=== PATIENT | female | born 1955 | race Hispanic/Latino ===

== ENCOUNTER → 2017-09-10 | Outpatient (CLI) | payer OTHER ==
[~2017-09-10] MED LIST: BACI1CAP PO; BIMA12.5OS OU; CEFD300C3 PO; GUAI120L62 PO; INSLAN SQ; INSU100I3 SQ; LEVA0.6312 IH; LEVO75TA10 PO; LORA-705 PO; MULT1CAP32 PO; OMEG300C3 PO
== END | disposition home or self-care (01) ==
LOC: RAH 15:47
PROVIDERS: ATTEND Internal Medicine
DX: Z12.31 Encounter for screening mammogram for malignant neoplasm of breast (principal)
CPT/HCPCS: 77067

== ENCOUNTER → 2018-03-25 | Outpatient (CLI) | payer OTHER | END | disposition home or self-care (01) | LOC: RAH 13:19 | PROVIDERS: ATTEND Registered Nurse General Practice | DX: N63.10 Unspecified lump in the right breast, unspecified quadrant (principal); N63.20 Unspecified lump in the left breast, unspecified quadrant | CPT/HCPCS: 76641 ==

== ENCOUNTER → 2018-04-09 | Outpatient (CLI) | payer OTHER | END | disposition home or self-care (01) | LOC: RAH 09:35 | PROVIDERS: ATTEND Family Medicine | DX: N63.21 Unspecified lump in the left breast, upper outer quadrant (principal) | CPT/HCPCS: 77066 ==

== ENCOUNTER → 2018-05-23 | Outpatient (CLI) | payer OTHER | END | disposition home or self-care (01) | LOC: RAH 08:36 | PROVIDERS: ATTEND Internal Medicine Gastroenterology | DX: K76.0 Fatty (change of) liver, not elsewhere classified (principal); K85.90 Acute pancreatitis without necrosis or infection, unspecified; G43.909 Migraine, unspecified, not intractable, without status migrainosus | CPT/HCPCS: 76700 ==

== ENCOUNTER → 2019-05-15 | Outpatient (CLI) | payer OTHER ==
[~2019-05-15] MED LIST changes: -LEVA0.6312 IH; +LEVA0.6333 IH
--- NOTE | 2019-05-15 12:53 | NUR ---
MBSS COMPLETED. PENETRATION WITH THIN LIQUIDS NOTED. RECOMMEND REGULAR TEXTURE, NECTAR-THICK LIQUIDS, PILLS WHOLE WITH LIQUIDS. RECOMMENDATIONS: 1. SKILLED SPEECH THERAPY TARGETING SWALLOWING [id number]. Addendum: 05/16/19 at 0854 by AD BUNDY, SPT ST Amended: Links added.
== END | disposition home or self-care (01) ==
LOC: RAH 11:15
PROVIDERS: ATTEND Family Medicine
DX: N60.02 Solitary cyst of left breast (principal); N60.01 Solitary cyst of right breast; R13.13 Dysphagia, pharyngeal phase; G43.909 Migraine, unspecified, not intractable, without status migrainosus; I10 Essential (primary) hypertension; E11.9 Type 2 diabetes mellitus without complications
CPT/HCPCS: 74230; 76641; 77066; 92610

== ENCOUNTER 2021-10-27 02:45 | Emergency (ER) | payer BC, OTHER ==
[~2021-10-27] VITALS: Ht 157.5 cm; Wt 81.6 kg
[~2021-10-27 02:45] MED LIST changes: +LORA-699 PO; -LORA-705 PO
[2021-10-27] MEDS ORDERED: KETOROLAC 30MG VIAL (30MG/ML) IM ONE (04:00)
[2021-10-27] MEDS ORDERED: HYDROCODONE/ACETAMINOPHEN 10/325 MG TAB PO ONE (04:00)
[2021-10-27] MEDS ORDERED: FIORC PO (05:15)
[2021-10-27 05:23] VITALS: BP 172/76
== END 2021-10-27 05:33 | disposition home or self-care (01) ==
LOC: EDH 02:45
DX: G43.909 Migraine, unspecified, not intractable, without status migrainosus (principal); I10 Essential (primary) hypertension; E11.9 Type 2 diabetes mellitus without complications; Z79.4 Long term (current) use of insulin; Z79.899 Other long term (current) drug therapy; Z90.49 Acquired absence of other specified parts of digestive tract; Z98.890 Other specified postprocedural states
CPT/HCPCS: 93005; 96372; 99284; J1885

== ENCOUNTER → 2022-06-23 | Outpatient (CLI) | payer BC ==
[~2022-06-23] MED LIST changes: +FIORC PO
== END | disposition home or self-care (01) ==
LOC: RAH 10:31
PROVIDERS: ATTEND Family Medicine
DX: Z12.31 Encounter for screening mammogram for malignant neoplasm of breast (principal)
CPT/HCPCS: 77067

== ENCOUNTER 2022-10-20 00:55 | Inpatient (IN) | payer BC, MEDICARE ==
[~2022-10-20] VITALS: Ht 157.5 cm; Wt 87.1 kg
[2022-10-20] VITALS (34 sets, daily range): BP systolic 140–215; BP diastolic 66–95
[2022-10-20 01:27] LABS: BASOPHILS % (AUTO) 0.4 % (0.0-5.0); HEMATOCRIT 41.6 % (36-48); LYMPHOCYTES % (AUTO) 21.1 % (21.0-51.0); MEAN CORPUSCULAR HEMOGLOBIN 31.5 pg (27.0-33.0); MEAN CORPUSCULAR HGB CONC 38.9 g/dL (32.0-36.0); MEAN CORPUSCULAR VOLUME 80.9 fL (79-99); NEUTROPHILS % (AUTO) 68.8 % (40.0-77.0); PLATELET COUNT (AUTO) 249 K/uL (130-400); RED BLOOD CELL COUNT(AUTO) 5.14 MIL/uL (4.00-5.50); WHITE BLOOD COUNT (AUTO) 13.6 K/uL (4.8-10.8)
[2022-10-20] MEDS ORDERED: ONDANSETRON 4MG INJ ONE (01:33)
[2022-10-20 02:00] LABS: APPEARANCE,URINE CLEAR (CLEAR); BILIRUBIN,URINE NEGATIVE (NEGATIVE); COLOR,URINE LIGHT-YELLOW (YELLOW); GLUCOSE, URINE (UA) >=1000 mg/dL (NEGATIVE); KETONES,URINE 20 mg/dL (NEGATIVE); LEUKOCYTE ESTERASE ,URINE NEGATIVE Leu/uL (NEGATIVE); NITRATE,URINE NEGATIVE (NEGATIVE); OCCULT BLOOD,URINE NEGATIVE (NEGATIVE); PH,URINE 5.5 (5.0-8.0); PROTEIN,URINE 70 mg/dL (NEGATIVE); UROBILINOGEN,URINE 0.2 mg/dL (0.2-1.0)
[2022-10-20] MEDS ORDERED: DICYCLOMINE HCL 10 MG/5 ML ML PO ONE (02:00)
[2022-10-20] MEDS ORDERED: KETOROLAC 15MG/ML VIAL (15MG/ML) IV ONE (02:00)
[2022-10-20] MEDS ORDERED: LIDOCAINE HCL 2% VISCOUS 15 ML UDCUP PO ONE (02:00)
[2022-10-20] MEDS ORDERED: 0.9%NACL 1000ML 1,000 ML IV ONE ×2 (02:00→08:30)
[2022-10-20] MEDS ORDERED: ONDANSETRON 4MG INJ IVP ONE (02:00)
[2022-10-20] MEDS ORDERED: MAG/ALUM/SIMETH 30 ML UDCUP PO ONE (02:00)
[2022-10-20 02:02] LABS: SQUAMOUS EPITHELIAL CELL,UR RARE /HPF (0-2)
[2022-10-20 02:03] LABS: POTASSIUM 4.8 mmol/L (3.5-5.1)
[2022-10-20] MEDS ORDERED: INSULIN HUMULIN R 100 UNIT/ML 3ML IV ONE (02:30)
[2022-10-20 02:35] LABS: ABG OXYGEN SATURATION 55.7 % (95.0-99.0); BASE EXCESS,VENOUS BLOOD GAS -2.9 (-2.0-3.0); HCO3,VENOUS BLOOD GAS 23.3 (21.0-28.0); PCO2,VENOUS BLOOD GAS 46 (32-45); PH,VENOUS BLOOD GAS 7.324 (7.350-7.450)
[2022-10-20] MEDS ORDERED: MORPHINE 2 MG SYG ONE (02:38)
[2022-10-20] MEDS ORDERED: MORPHINE 2 MG SYG IVP ONE (03:00)
[2022-10-20 03:13] LABS: TOTAL PROTEIN, SERUM 9.2 g/dL (6.0-8.3)
[2022-10-20 03:14] LABS: ALBUMIN 3.2 g/dL (3.5-5.0); CREATININE 0.7 mg/dL (0.5-1.5); MAGNESIUM 2.4 mg/dL (1.80-2.40)
[2022-10-20 03:15] LABS: LDL DIRECT 48 mg/dL (0-99)
[2022-10-20 03:16] LABS: HDL CHOLESTEROL 37 mg/dL (35-85)
[2022-10-20 03:19] LABS: CHOLESTEROL 633 mg/dL (<200); TRIGLYCERIDES 7834 mg/dL (30-200)
[2022-10-20] MEDS ORDERED: 0.9%NACL 1000ML 1,000 ML IV SCH (04:00)
[2022-10-20] MEDS ORDERED: MORPHINE 4 MG SYG IV PRN (04:00)
[2022-10-20] MEDS ORDERED: MAGNESIUM 2GM PREMIX 50ML 50 ML IV SCH (04:00)
[2022-10-20] MEDS ORDERED: PHARMACY COMMUNICATION MISC SCH (04:00)
[2022-10-20] MEDS ORDERED: MORPHINE 2 MG SYG IV PRN (04:00)
[2022-10-20] MEDS ORDERED: ACETAMINOPHEN 325 MG TAB PO PRN ×2 (04:00)
[2022-10-20] MEDS ORDERED: INSULIN REGULAR, HUMAN 3ML 100 UNIT in 0.9%NACL 100ML 99 ML IV SCH ×2 (04:30)
[2022-10-20] MEDS ORDERED: POTASSIUM CHLORIDE 20MEQ/100ML 100 ML IV ONE ×2 (04:49→12:01)
[2022-10-20] MEDS: ONDANSETRON 4MG INJ IV PRN ×2 (05:05→11:10)
[2022-10-20] MEDS: D5W-1/2 NS/20MEQ KCL 1,000 ML IV SCH (05:06)
[2022-10-20] MEDS ORDERED: ATORVASTATIN 20 MG TABLET PO SCH (07:30)
[2022-10-20 07:43] LABS: POTASSIUM 4.1 mmol/L (3.5-5.1)
[2022-10-20 08:27] LABS: CREATININE 0.8 mg/dL (0.5-1.5)
[2022-10-20] MEDS: ENOXAPARIN SODIUM 40 MG/0.4 ML SYRINGE SQ SCH (08:55)
[2022-10-20] MEDS: FAMOTIDINE 20MG VIAL IV SCH (08:55)
[2022-10-20] MEDS: FENOFIBRATE NANOCRYSTALLIZED 145 MG TAB PO SCH (09:00)
[2022-10-20] MEDS ORDERED: SODIUM CHLORIDE 3% FOR INHALATION 4 ML/AMP VIAL.NEB IH ONE ×2 (09:52→18:31)
[2022-10-20 10:19] LABS: AMYLASE 1509 U/L (25-115); TRIGLYCERIDES 2693 mg/dL (30-200)
[2022-10-20] MEDS: INSULIN REGULAR, HUMAN 3ML 100 UNIT in 0.9%NACL 100ML 99 ML IV SCH ×2 (10:59)
[2022-10-20] MEDS ORDERED: HYDRALAZINE 20MG/ML VIAL IV PRN (11:00)
[2022-10-20 11:03] LABS: LIPASE 22627 U/L (114-286)
[2022-10-20 12:42] LABS: CREATININE 0.6 mg/dL (0.5-1.5); POTASSIUM 3.9 mmol/L (3.5-5.1)
[2022-10-20] MEDS ORDERED: SEMA1PEN3 SQ (12:47)
[2022-10-20] MEDS ORDERED: EMPA25TA PO (12:47)
[2022-10-20] MEDS ORDERED: METF-527 PO (12:47)
[2022-10-20] MEDS ORDERED: FENO200C28 PO (12:47)
[2022-10-20] MEDS: HYDROMORPHONE 0.5 MG SYG (0.5MG/0.5ML) IVP PRN ×2 (16:36→21:08)
[2022-10-20 17:29] LABS: CREATININE 0.6 mg/dL (0.5-1.5); POTASSIUM 3.8 mmol/L (3.5-5.1)
[2022-10-20 19:38] LABS: CREATININE 0.7 mg/dL (0.5-1.5); POTASSIUM 3.9 mmol/L (3.5-5.1)
[2022-10-20] MEDS: INSULIN GLARGINE 100 UNITS/ML 10 ML VIAL SQ SCH ×2 (21:00→21:10)
[2022-10-21] VITALS (28 sets, daily range): BP systolic 121–155; BP diastolic 51–86
[2022-10-21 00:06] LABS: CREATININE 0.7 mg/dL (0.5-1.5); POTASSIUM 4.1 mmol/L (3.5-5.1)
[2022-10-21] MEDS: HYDROMORPHONE 0.5 MG SYG (0.5MG/0.5ML) IVP PRN (01:43)
[2022-10-21] MEDS: D5W-1/2 NS/20MEQ KCL 1,000 ML IV SCH ×3 (03:15→20:53)
[2022-10-21 03:53] LABS: BASOPHILS % (AUTO) 0.4 % (0.0-5.0); EOSINOPHILS % (AUTO) 0.4 % (0.0-8.0); HEMATOCRIT 42.6 % (36-48); LYMPHOCYTES % (AUTO) 18.4 % (21.0-51.0); MEAN CORPUSCULAR HEMOGLOBIN 27.3 pg (27.0-33.0); MEAN CORPUSCULAR HGB CONC 32.6 g/dL (32.0-36.0); MEAN CORPUSCULAR VOLUME 83.5 fL (79-99); MONOCYTES % (AUTO) 5.4 % (3.0-13.0); NEUTROPHILS % (AUTO) 74.8 % (40.0-77.0); PLATELET COUNT (AUTO) 296 K/uL (130-400); RED CELL DISTRIBUTION WIDTH 14.8 % (11.0-15.5); WHITE BLOOD COUNT (AUTO) 10.9 K/uL (4.8-10.8)
[2022-10-21 04:16] LABS: CREATININE 0.6 mg/dL (0.5-1.5); MAGNESIUM 2.1 mg/dL (1.80-2.40); POTASSIUM 4.2 mmol/L (3.5-5.1)
[2022-10-21] MEDS: ONDANSETRON 4MG INJ IV PRN ×2 (06:31→14:13)
[2022-10-21] MEDS: INSULIN GLARGINE 100 UNITS/ML 10 ML VIAL SQ SCH ×2 (06:34→21:00)
[2022-10-21] MEDS: INSULIN REGULAR, HUMAN 3ML 100 UNIT in 0.9%NACL 100ML 99 ML IV SCH ×4 (06:36→20:55)
[2022-10-21] MEDS: FAMOTIDINE 20MG VIAL IV SCH (09:18)
[2022-10-21] MEDS: FENOFIBRATE NANOCRYSTALLIZED 145 MG TAB PO SCH (09:19)
[2022-10-21] MEDS: ENOXAPARIN SODIUM 40 MG/0.4 ML SYRINGE SQ SCH (09:23)
[2022-10-21 12:22] LABS: CREATININE 0.6 mg/dL (0.5-1.5)
[2022-10-22] VITALS (38 sets, daily range): BP systolic 109–168; BP diastolic 51–103
[2022-10-22 04:09] LABS: BASOPHILS % (AUTO) 0.6 % (0.0-5.0); EOSINOPHILS % (AUTO) 1.8 % (0.0-8.0); HEMATOCRIT 38.3 % (36-48); MEAN CORPUSCULAR HEMOGLOBIN 27.1 pg (27.0-33.0); MEAN CORPUSCULAR HGB CONC 31.9 g/dL (32.0-36.0); MEAN CORPUSCULAR VOLUME 85.1 fL (79-99); NEUTROPHILS % (AUTO) 70.7 % (40.0-77.0); PLATELET COUNT (AUTO) 164 K/uL (130-400); RED CELL DISTRIBUTION WIDTH 15.2 % (11.0-15.5); WHITE BLOOD COUNT (AUTO) 10.3 K/uL (4.8-10.8)
[2022-10-22 04:48] LABS: CREATININE 0.6 mg/dL (0.5-1.5); MAGNESIUM 2.2 mg/dL (1.80-2.40); POTASSIUM 3.6 mmol/L (3.5-5.1); TOTAL PROTEIN, SERUM 6.8 g/dL (6.0-8.3)
[2022-10-22] MEDS ORDERED: POTASSIUM CHLORIDE 20MEQ/100ML 100 ML IV ONE (05:05)
[2022-10-22 05:19] LABS: ALBUMIN 14.7 g/dL (3.5-5.0)
[2022-10-22] MEDS: FENOFIBRATE NANOCRYSTALLIZED 145 MG TAB PO SCH (08:10)
[2022-10-22] MEDS: ENOXAPARIN SODIUM 40 MG/0.4 ML SYRINGE SQ SCH (08:10)
[2022-10-22] MEDS: FAMOTIDINE 20MG VIAL IV SCH (08:11)
[2022-10-22] MEDS: POTASSIUM CHLORIDE 10MEQ/100ML 100 ML IV PRN ×4 (09:35→20:36)
[2022-10-22] MEDS ORDERED: GLYCERIN ADULT SUPP.RECT RC PRN (10:00)
[2022-10-22] MEDS ORDERED: HYDROCORTISONE 25 MG SUPPOSITORY PR PRN (10:00)
[2022-10-22] MEDS: DEXTROSE 10%-WATER 1,000 ML IV SCH (12:31)
[2022-10-22] MEDS: D5W-1/2 NS/20MEQ KCL 1,000 ML IV SCH (14:14)
[2022-10-22] MEDS: INSULIN REGULAR, HUMAN 3ML 100 UNIT in 0.9%NACL 100ML 99 ML IV SCH ×2 (14:32)
[2022-10-22] MEDS ORDERED: ACETAMINOPHEN 325 MG SUPPOSITORY RC PRN (17:00)
[2022-10-22] MEDS: HYDROMORPHONE 0.5 MG SYG (0.5MG/0.5ML) IVP PRN ×2 (17:55→21:49)
[2022-10-22] MEDS: ONDANSETRON 4MG INJ IV PRN (21:48)
[2022-10-22] MEDS ORDERED: INSULIN HUMULIN R 100 UNIT/ML 3ML ONE (23:35)
[2022-10-23] VITALS (30 sets, daily range): BP systolic 129–168; BP diastolic 45–115
[2022-10-23] MEDS ORDERED: POTASSIUM CHLORIDE 20MEQ/100ML 100 ML IV ONE (00:04)
[2022-10-23] MEDS: HYDROMORPHONE 0.5 MG SYG (0.5MG/0.5ML) IVP PRN (03:29)
[2022-10-23 03:57] LABS: BASOPHILS % (AUTO) 0.4 % (0.0-5.0); EOSINOPHILS % (AUTO) 5.6 % (0.0-8.0); HEMATOCRIT 35.5 % (36-48); MEAN CORPUSCULAR HEMOGLOBIN 26.5 pg (27.0-33.0); MEAN CORPUSCULAR HGB CONC 31.8 g/dL (32.0-36.0); MEAN CORPUSCULAR VOLUME 83.3 fL (79-99); MONOCYTES % (AUTO) 4.7 % (3.0-13.0); NEUTROPHILS % (AUTO) 71.5 % (40.0-77.0); PLATELET COUNT (AUTO) 161 K/uL (130-400); RED BLOOD CELL COUNT(AUTO) 4.26 MIL/uL (4.00-5.50); RED CELL DISTRIBUTION WIDTH 15.7 % (11.0-15.5); WHITE BLOOD COUNT (AUTO) 9.5 K/uL (4.8-10.8)
[2022-10-23 04:22] LABS: ALBUMIN 14.6 g/dL (3.5-5.0); CREATININE 0.6 mg/dL (0.5-1.5); MAGNESIUM 1.9 mg/dL (1.80-2.40); POTASSIUM 3.4 mmol/L (3.5-5.1); TOTAL PROTEIN, SERUM 6.3 g/dL (6.0-8.3)
[2022-10-23] MEDS: POTASSIUM CHLORIDE 10MEQ/100ML 100 ML IV PRN ×2 (08:50→11:44)
[2022-10-23] MEDS: FAMOTIDINE 20MG VIAL IV SCH (08:51)
[2022-10-23] MEDS: ENOXAPARIN SODIUM 40 MG/0.4 ML SYRINGE SQ SCH (08:51)
[2022-10-23] MEDS: FENOFIBRATE NANOCRYSTALLIZED 145 MG TAB PO SCH (09:00)
[2022-10-23] MEDS: LISINOPRIL 10 MG TABLET PO SCH (09:00)
[2022-10-23] MEDS: INSULIN REGULAR, HUMAN 3ML 100 UNIT in 0.9%NACL 100ML 99 ML IV SCH ×2 (10:13)
[2022-10-23] MEDS: D5W-1/2 NS/20MEQ KCL 1,000 ML IV SCH ×2 (10:13→22:49)
[2022-10-23] MEDS ORDERED: LACTULOSE 20 GM/30 ML UDCUP PO PRN (12:00)
[2022-10-23] MEDS: DEXTROSE 10%-WATER 1,000 ML IV SCH (12:30)
[2022-10-23] MEDS ORDERED: LISINOPRIL 10 MG TABLET PO ONE (14:30)
[2022-10-23 17:04] LABS: CREATININE 0.6 mg/dL (0.5-1.5); POTASSIUM 3.7 mmol/L (3.5-5.1)
[2022-10-23] MEDS ORDERED: LACTULOSE 20 GM/30 ML UDCUP PO ONE (20:00)
[2022-10-23] MEDS ORDERED: INSULIN HUMULIN R 100 UNIT/ML 3ML SQ SCH (21:00)
[2022-10-24] MEDS: ONDANSETRON 4MG INJ IV PRN ×2 (02:10→19:39)
[2022-10-24 03:25] VITALS: BP 151/71
[2022-10-24 06:22] LABS: BASOPHILS % (AUTO) 0.4 % (0.0-5.0); EOSINOPHILS % (AUTO) 2.6 % (0.0-8.0); HEMATOCRIT 35.5 % (36-48); LYMPHOCYTES % (AUTO) 13.3 % (21.0-51.0); MEAN CORPUSCULAR HEMOGLOBIN 26.6 pg (27.0-33.0); MEAN CORPUSCULAR HGB CONC 32.1 g/dL (32.0-36.0); MEAN CORPUSCULAR VOLUME 82.8 fL (79-99); MONOCYTES % (AUTO) 6.5 % (3.0-13.0); PLATELET COUNT (AUTO) 181 K/uL (130-400); RED BLOOD CELL COUNT(AUTO) 4.29 MIL/uL (4.00-5.50); RED CELL DISTRIBUTION WIDTH 16.1 % (11.0-15.5); WHITE BLOOD COUNT (AUTO) 10.8 K/uL (4.8-10.8)
[2022-10-24] MEDS: INSULIN HUMULIN R 100 UNIT/ML 3ML SQ SCH ×4 (06:33→20:39)
[2022-10-24 06:42] LABS: ALBUMIN 1.8 g/dL (3.5-5.0); CREATININE 0.6 mg/dL (0.5-1.5); MAGNESIUM 1.9 mg/dL (1.80-2.40); POTASSIUM 4.3 mmol/L (3.5-5.1); TOTAL PROTEIN, SERUM 6.3 g/dL (6.0-8.3)
[2022-10-24 08:00] VITALS: BP 135/72
[2022-10-24] MEDS: ENOXAPARIN SODIUM 40 MG/0.4 ML SYRINGE SQ SCH (10:00)
[2022-10-24] MEDS: FENOFIBRATE NANOCRYSTALLIZED 145 MG TAB PO SCH (10:00)
[2022-10-24] MEDS: FAMOTIDINE 20MG VIAL IV SCH (10:00)
[2022-10-24] MEDS: LISINOPRIL 10 MG TABLET PO SCH (10:00)
[2022-10-24] MEDS: INSULIN GLARGINE 100 UNITS/ML 10 ML VIAL SQ SCH (10:06)
[2022-10-24] MEDS ORDERED: FUROSEMIDE 20MG VIAL IV SCH (11:00)
[2022-10-24 12:00] VITALS: BP 139/95
[2022-10-24 12:49] LABS: LIPASE 737 U/L (114-286); TRIGLYCERIDES 448 mg/dL (30-200)
[2022-10-24 16:00] VITALS: BP 144/72
[2022-10-24 20:00] VITALS: BP 156/73
[2022-10-24] MEDS ORDERED: INSULIN GLARGINE 100 UNITS/ML 10 ML VIAL SQ SCH (21:00)
[2022-10-25] VITALS: BP 148/75
[2022-10-25 04:00] VITALS: BP 147/76
[2022-10-25] MEDS: INSULIN HUMULIN R 100 UNIT/ML 3ML SQ SCH (06:36)
[2022-10-25] MEDS ORDERED: INSULIN HUMULIN R 100 UNIT/ML 3ML SQ SCH (07:30)
[2022-10-25 08:00] VITALS: BP 154/66
[2022-10-25] MEDS: FENOFIBRATE NANOCRYSTALLIZED 145 MG TAB PO SCH (08:15)
[2022-10-25] MEDS: ENOXAPARIN SODIUM 40 MG/0.4 ML SYRINGE SQ SCH (08:15)
[2022-10-25] MEDS: INSULIN GLARGINE 100 UNITS/ML 10 ML VIAL SQ SCH (08:15)
[2022-10-25] MEDS: LISINOPRIL 10 MG TABLET PO SCH (08:16)
[2022-10-25] MEDS: FAMOTIDINE 20MG VIAL IV SCH (08:16)
== END 2022-10-25 10:34 | disposition home or self-care (01) | DRG 438 ==
LOC: EDH 00:55 → EDHIP 03:51 → 2CH 12:30 → 3BH 10-24 02:56
PROVIDERS: ADMIT Internal Medicine; ATTEND Internal Medicine
DX: K85.80 Other acute pancreatitis without necrosis or infection (principal); E11.10 Type 2 diabetes mellitus with ketoacidosis without coma; E44.0 Moderate protein-calorie malnutrition; E78.1 Pure hyperglyceridemia; E78.5 Hyperlipidemia, unspecified; I10 Essential (primary) hypertension; J44.9 Chronic obstructive pulmonary disease, unspecified; Z79.4 Long term (current) use of insulin; Z79.84 Long term (current) use of oral hypoglycemic drugs; Z79.899 Other long term (current) drug therapy; Z82.0 Family history of epilepsy and other diseases of the nervous system; Z82.3 Family history of stroke; Z82.49 Family history of ischemic heart disease and other diseases of the circulatory system; Z82.5 Family history of asthma and other chronic lower respiratory diseases; Z83.3 Family history of diabetes mellitus; Z90.49 Acquired absence of other specified parts of digestive tract; Z90.711 Acquired absence of uterus with remaining cervical stump; Z68.35 Body mass index [BMI] 35.0-35.9, adult
CPT/HCPCS: 36415; 36600; 71045; 74176; 80048; 80053; 80061; 81001; 82010; 82150; 82435; 82803; 82947; 82948; 83036; 83605; 83690; 83735; 83880; 84132; 84145; 84295; 84478; 85025; 87040; 93005; 94640; G0378; J0360; J1170; J1650; J1815; J1885; J1940; J2270; J2405; J3480; J3490; J7030

== ENCOUNTER → 2023-07-26 | Outpatient (CLI) | payer MEDICARE ==
[~2023-07-26] MED LIST changes: -BACI1CAP PO; -BIMA12.5OS OU; -CEFD300C3 PO; +EMPA25TA PO; -FIORC PO; -GUAI120L62 PO; -INSLAN SQ; -INSU100I3 SQ; -LEVA0.6333 IH; -LEVO75TA10 PO; -LORA-699 PO; -OMEG300C3 PO
[2023-07-26 12:07] LABS: BASOPHILS # (AUTO) 0.06 K/uL (0.00-0.20); BASOPHILS % (AUTO) 0.6 % (0.0-5.0); EOSINOPHILS # (AUTO) 0.47 K/uL (0.00-0.70); EOSINOPHILS % (AUTO) 5.1 % (0.0-8.0); HEMATOCRIT 41.8 % (36-48); IMMATURE GRANULOCYTE ABSOLUTE 0.09 K/uL (0-1); LYMPHOCYTES # (AUTO) 2.7 K/uL (1.0-4.8); LYMPHOCYTES % (AUTO) 29.2 % (21.0-51.0); MEAN CORPUSCULAR HEMOGLOBIN 27.7 pg (27.0-33.0); MEAN CORPUSCULAR HGB CONC 32.3 g/dL (32.0-36.0); MEAN CORPUSCULAR VOLUME 85.7 fL (79-99); MONOCYTES # (AUTO) 0.6 K/uL (0.1-1.0); MONOCYTES % (AUTO) 6.5 % (3.0-13.0); NEUTROPHILS # (AUTO) 5.4 K/uL (1.8-7.7); NEUTROPHILS % (AUTO) 57.6 % (40.0-77.0); PLATELET COUNT (AUTO) 273 K/uL (130-400); RED BLOOD CELL COUNT(AUTO) 4.88 MIL/uL (4.00-5.50); RED CELL DISTRIBUTION WIDTH 13.3 % (11.0-15.5); WHITE BLOOD COUNT (AUTO) 9.3 K/uL (4.8-10.8)
[2023-07-26 12:39] LABS: ALBUMIN 3.9 g/dL (3.5-5.0); BILIRUBIN,TOTAL 0.2 mg/dL (0.2-1.0); CREATININE 0.7 mg/dL (0.5-1.5); POTASSIUM 3.9 mmol/L (3.5-5.1); TOTAL PROTEIN, SERUM 8.1 g/dL (6.0-8.3)
[2023-07-26 12:57] LABS: B-TYPE NATRIURETIC PEPTIDE < 5 pg/mL (0-100)
== END | disposition home or self-care (01) ==
LOC: LAB 09:49
PROVIDERS: ATTEND Internal Medicine Cardiovascular Disease
DX: R07.89 Other chest pain (principal); R42 Dizziness and giddiness; R06.01 Orthopnea
CPT/HCPCS: 36415; 80053; 80061; 83880; 85025

== ENCOUNTER → 2024-04-25 | Outpatient (CLI) | payer OTHER | END | disposition home or self-care (01) | LOC: RAH 11:11 | PROVIDERS: ATTEND Family Medicine | DX: Z12.31 Encounter for screening mammogram for malignant neoplasm of breast (principal); R92.333 Mammographic heterogeneous density, bilateral breasts | CPT/HCPCS: 77067 ==

== ENCOUNTER → 2025-03-12 | Outpatient (CLI) | payer OTHER, MEDICAID ==
--- NOTE | 2025-03-17 10:41 | HMCIMG ---
CLINICAL INDICATION: Asymptomatic menopausal state COMPARISON: None TECHNIQUE: Bone densitometry is performed of the lumbar spine and left hip. FINDINGS: Total BMD of lumbar spine is 1.061 g/cm2 with a T-score of 0.1 and Z-score is 2.1. Total BMD of left hip is 1.031 g/cm2 with a T-score of 0.5 and Z-score is 1.8. FRAX SCORE: The 10 year fracture risk for a major osteoporotic fracture and hip fracture not reported because all T-scores for spine total, Hip total, Femoral neck at or above -1.0 IMPRESSION: 1. Normal DEXA scan 2. I would recommend follow-up DEXA in 2 years World Health Organization criteria for BMD interpretation classify patients as Normal (T-score at or above -1.0), Osteopenic (T-score between -1.0 and -2.5), or Osteoporotic (T-score at or below -2.5). FRAX SCORE: A. All treatment decisions require clinical judgment and consideration of individual patient factors, including patient preferences, comorbidities, previous drug use, risk factors not captured in the FRAX model (e.g., frailty, falls, vitamin D deficiency, increased bone turnover, interval significant decline in bone density) and possible [id number]-tirm-estimation of fracture risk by FRAX. B. In addition, the NOF Guide recommends that FDA-approved medical therapies be considered in postmenopausal women and men age greater than or equal to 50 years with a: i. Hip or vertebral (clinical or morphometric) fracture. ii. T-score of less than or equal to -2.5 at the spine or hip. iii. Ten-year fracture probability by FRAX of greater than or equal to 3% for hip fracture of greater than or equal to 20% for major osteoporotic fracture.
== END | disposition home or self-care (01) ==
LOC: RAH 13:33
PROVIDERS: ATTEND Student in an Organized Health Care Education/Training Program
DX: Z78.0 Asymptomatic menopausal state (principal)
CPT/HCPCS: 77080